=== PATIENT | female | born 1965 | race Caucasian/White ===

== ENCOUNTER 2021-02-11 20:15 | Emergency (ER) | payer BC, OTHER ==
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
--- NOTE | 2021-02-11 21:30 | CRLCR ---
For Patients: As a result of the Century Cures Act, medical imaging exams and procedure reports are released immediately into your electronic medical record. You may view this report before your referring provider. If you have questions, please contact your health care provider. Indication: Pain and swelling over the lateral malleolus Technique: Right ankle 3 views Comparison: None Findings: Bones: Alignment is normal. No fractures or bone lesions. Joint spaces: Joint spaces are well maintained. No degenerative changes. Soft tissues: Unremarkable. Impression: Normal right ankle. Dictated by Dale Castañeda MD @ 02/11/2021 9:30:30 PM (Electronically Signed)
== END 2021-02-11 22:05 | disposition home or self-care (01) ==
LOC: JP.ED 20:15
DX: S93.491A Sprain of other ligament of right ankle, initial encounter (principal); Z88.1 Allergy status to other antibiotic agents; Z88.2 Allergy status to sulfonamides; Z88.8 Allergy status to other drugs, medicaments and biological substances; Z79.899 Other long term (current) drug therapy; X50.1XXA Overexertion from prolonged static or awkward postures, initial encounter
CPT/HCPCS: 73610-RT; 99283-25